=== PATIENT | female | born 1995 | race African-American/Black ===

== ENCOUNTER 2016-10-11 09:45 | Emergency (ER) | payer BC ==
[~2016-10-11 09:45] MED LIST: FLORASTOR250 MG PO; HUMALOG SC; HUMULIN N1 ML SC; NEOSPORIN TOP; OMNICEF300 PO; REG PO; THERAPEUTIC PO
[2017-03-02] MEDS ORDERED: HUMALOGMIX (02:10)
[2017-03-02] MEDS ORDERED: NEUR100 PO ×2 (02:11→09:54)
[2017-03-02] MEDS ORDERED: HUMALOG SC ×4 (02:11→09:55)
[2017-03-02] MEDS ORDERED: *UNABLE3 (02:13)
[2017-03-02] MEDS ORDERED: HUMALOGMIX SC (09:54)
[2017-03-02] MEDS ORDERED: DIABETIC FOOT CREAM TOP (09:56)
[2017-03-02] MEDS ORDERED: L40 PO ×2 (09:56)
[2017-03-12] MEDS ORDERED: LOTE20 PO (11:32)
[2017-03-12] MEDS ORDERED: PROTONIX PO (11:33)
[2017-03-12] MEDS ORDERED: SUCR PO (11:34)
[2017-03-12] MEDS ORDERED: HUMULIN SC (11:36)
== END 2016-10-11 10:24 | disposition home or self-care (01) ==
LOC: ER 09:45
DX: S70.12XA Contusion of left thigh, initial encounter (principal); M25.562 Pain in left knee; E11.9 Type 2 diabetes mellitus without complications; M54.5 Low back pain; W19.XXXA Unspecified fall, initial encounter; Z79.899 Other long term (current) drug therapy; Z79.4 Long term (current) use of insulin
CPT/HCPCS: 72100; 73560-LT; 99283

== ENCOUNTER 2017-02-27 09:39 | Emergency (ER) | payer BC ==
[2017-02-27 11:14] LABS: CARBOXYHEMOGLOBIN 1.2 % (0-3); HCO3 (ACTUAL BICARBONATE) 22.9 MEQ/L (23-27); HEMOBLOGIN CONTENT 13.3 G/DL (12-16); INSTRUMENT SERIAL # 8087; O2 CONTENT 17.9 VOL% (18-24); OPERATOR ID 35188; PCO2 (CO2 TENSION) 36 MMHG (35-45); PO2 (O2 TENSION) 88 MMHG (79-93); SAMPLE Arterial; pH 7.43 (7.37-7.43)
[2017-02-27 11:59] LABS: ASCORBIC ACID (UR NOT ORDER) NEG (NEG); BILIRUBIN, URINE NEGATIVE (NEG); ER URINALYSIS TAT 0 Hrs 20 Mins; KETONE, URINE 20 MG/DL (NEG); LEUKOCYTE ESTERASE(NOT OR NEG (NEG); NITRITE (URINE) NEG (NEG); WBC (NOT ORDERED) (RFLEX) 3 (0-5)
[2017-02-27 12:01] LABS: BASOPHILS 0.3 %; BASOPHILS ABSOLUTE 0.03 10/3/uL (0.0-0.16); EOSINOPHILS 3.3 %; EOSINOPHILS ABSOLUTE 0.39 10/3/uL (0.0-0.53); HEMATOCRIT 36.2 % (36.0-48.0); HEMOGLOBIN 12.8 g/dL (12.0-16.0); IMMATURE GRANULOCYTES 0.3 %; IMMATURE GRANULOCYTES ABSOLUTE 0.03 10/3/uL (0.0-0.11); LYMPHOCYTES 21.6 %; LYMPHOCYTES ABSOLUTE 2.53 10/3/uL (0.67-4.30); MEAN CORPUS HGB CONC 35.4 g/dL (32.0-36.0); MEAN CORPUSCULAR HEMOGLOB 29.5 pg (26.0-34.0); MEAN CORPUSCULAR VOLUME 83.4 fL (80-100); MEAN PLATELET VOLUME 11.1 fL (9.2-13.0); MONOCYTES 3.9 %; MONOCYTES ABSOLUTE 0.46 10/3/uL (0.21-1.20); NEUTROPHILS 70.6 %; NEUTROPHILS ABSOLUTE 8.26 10/3/uL (2.02-8.40); PLATELET COUNT 387 10/3/uL (150-400); RBC DISTRIBUTION WIDTH 12.9 % (12.0-16.0); RED CELL COUNT 4.34 10/6/uL (4.0-5.6); WHITE BLOOD CELLS 11.7 10/3/uL (4.5-10.5)
[2017-02-27 12:02] LABS: MANUAL DIFF NO %
[2017-02-27 12:05] LABS: ACETONE NEG
[2017-02-27 12:18] LABS: A/G RATIO 0.6 (0.7-1.9); ALBUMIN 2.9 G/DL (3.5-5.0); ALKALINE PHOSPHATASE 100 U/L (45-117); BUN (BLOOD UREA NITROGEN) 11 MG/DL (6-23); CHLORIDE, SERUM 100 MMOL/L (96-112); CO2 (CARBON DIOXIDE) 24 MMOL/L (24-34); CREATININE 0.93 MG/DL (0.55-1.02); GFR AFRICAN AMERICAN 100 ML/MIN (>=60); GFR NON AFRICAN AMERICAN 87 ML/MIN (>=60); SGOT(AST) 18 U/L (5-40); SGPT(ALT) 28 U/L (5-65); SODIUM, SERUM 132 MMOL/L (135-148); TOTAL BILIRUBIN 0.4 MG/DL (0-1.2); TOTAL PROTEIN 7.9 G/DL (6.0-8.5)
[2017-02-27 12:21] LABS: GLUCOSE, SERUM 534 MG/DL (60-99); POTASSIUM, SERUM 4.7 MMOL/L (3.5-5.3)
[2017-03-02] MEDS ORDERED: HUMALOGMIX (02:10)
[2017-03-02] MEDS ORDERED: NEUR100 PO ×2 (02:11→09:54)
[2017-03-02] MEDS ORDERED: HUMALOG SC ×4 (02:11→09:55)
[2017-03-02] MEDS ORDERED: *UNABLE3 (02:13)
[2017-03-02] MEDS ORDERED: HUMALOGMIX SC (09:54)
[2017-03-02] MEDS ORDERED: L40 PO ×2 (09:56)
[2017-03-02] MEDS ORDERED: DIABETIC FOOT CREAM TOP (09:56)
== END 2017-02-27 16:12 | disposition home or self-care (01) ==
LOC: ER 09:39
PROVIDERS: Emergency Medicine
DX: E10.65 Type 1 diabetes mellitus with hyperglycemia (principal); E10.40 Type 1 diabetes mellitus with diabetic neuropathy, unspecified; Z79.4 Long term (current) use of insulin; Z79.899 Other long term (current) drug therapy
CPT/HCPCS: 36600; 71010; 80053; 81001; 82009; 82805; 82962; 83605; 83690; 84703; 85025; 93005; 96374; 96375; 99285; A9270-GY; J1170; J2405